=== PATIENT | male | born 1955 | race Caucasian/White ===

== ENCOUNTER 2016-08-14 08:18 | Day surgery (SDC) | payer MEDICARE, MEDICAID ==
[~2016-08-14] VITALS: Ht 188 cm; Wt 107.3 kg
[2016-08-14] MEDS ORDERED: SODIUM CHLORIDE 0.9% FLUSH 5 ML FLUSH IV FLUSH SCH (09:00)
[2016-08-14] MEDS ORDERED: SODIUM CHLORIDE 0.9% FLUSH 5 ML FLUSH IV FLUSH PRN (09:00)
[2016-08-14] MEDS ORDERED: OXYC1CAP PO (09:26)
[2016-08-14] MEDS ORDERED: LYRI200C PO (09:26)
[2016-08-14] MEDS ORDERED: BACL10TA PO (09:26)
[2016-08-14] MEDS ORDERED: FURO20TA PO (09:26)
[2016-08-14] MEDS ORDERED: CLOP75TA PO (09:26)
[2016-08-14] MEDS ORDERED: COLA100C3 PO (09:26)
[2016-08-14] MEDS ORDERED: FENT50DI T-DERMAL (09:26)
[2016-08-14] MEDS ORDERED: BUPR150XL PO (09:26)
[2016-08-14] MEDS ORDERED: METO50TA PO (09:26)
[2016-08-14] MEDS ORDERED: DIGO0.25 PO (09:26)
[2016-08-14] MEDS ORDERED: FLOR250C PO (09:26)
[2016-08-14] MEDS ORDERED: SIMV20TA PO (09:26)
[2016-08-14] MEDS ORDERED: LEXA20TA PO (09:26)
[2016-08-14] MEDS ORDERED: TAMS0.4C4 PO (09:26)
[2016-08-14] MEDS ORDERED: LACT10SO PO (09:26)
[2016-08-14] MEDS ORDERED: LEVO25TA4 PO (09:26)
[2016-08-14] MEDS ORDERED: LORA-474 PO (09:26)
[2016-08-14 09:41] LABS: BICARBONATE 25.9 MEQ/L (21.0-32.0); POTASSIUM 5.2 MEQ/L (3.5-5.1)
[2016-08-14] MEDS ORDERED: SODIUM BICARBONATE 100 MEQ in D5W 1000 ML IV SCH (10:00)
[2016-08-14 10:27] LABS: AUTOMATED NEUTROPHIL # 4.4 TH/MM3 (1.8-7.7); BASOPHIL % 0.7 % (0.0-2.0); EOSINOPHIL # 0.1 TH/MM3 (0-0.4); EOSINOPHIL % 1.9 % (0.0-4.0); HEMATOCRIT 35.6 % (39.0-51.0); HEMO FLAGS DIFF FINAL; LYMPH % 14.7 % (9.0-44.0); LYMPHOCYTE # 0.8 TH/MM3 (1.0-4.8); MEAN CELL VOLUME 81.6 FL (80.0-100.0); MEAN CORPUSCULAR HEMOGLOBIN 27.5 PG (27.0-34.0); MEAN CORPUSCULAR HGB CONC 33.7 % (32.0-36.0); MONO % 6.6 % (0.0-8.0); NEUT % 76.1 % (16.0-70.0); PLATELET COUNT 109 TH/MM3 (150-450); RED BLOOD COUNT 4.37 MIL/MM3 (4.50-5.90); RED CELL DISTRIBUTION WIDTH 16.2 % (11.6-17.2); WHITE BLOOD COUNT 5.7 TH/MM3 (4.0-11.0)
[2016-08-14 10:41] LABS: APTT (PATIENT) 27.1 SEC (24.3-30.1); PROTHROMBIN TIME - PATIENT 11.1 SEC (9.8-11.6)
[2016-08-14] MEDS ORDERED: MIDAZOLAM HCL 2 MG/2 ML VIAL ONE (11:42)
[2016-08-14] MEDS ORDERED: HEPARIN-NS/PF INJ 500 ML ONE (11:42)
[2016-08-14] MEDS ORDERED: IOHEXOL 350 MG/ML 50 ML BTL (for Cath Lab) OTHER ONE (11:45)
[2016-08-14] MEDS ORDERED: IOHEXOL 350 MG/ML 100 ML BTL (for Cath Lab) OTHER ONE (11:45)
--- NOTE | 2016-08-14 13:17 | MA ---
cc: KALI HARRY DATE 08/14/[address] Kali Harry PREOPERATIVE DIAGNOSIS Critical limb ischemia with 450 foot claudication right lower extremity and a slow healing second toe ulcer. PROCEDURE The patient had an aortogram with nonselective right lower extremity arteriogram and selective left lower short arteriogram. IV FLUIDS One liter of normal saline and sodium bicarb ESTIMATED BLOOD LOSS Minimal SEDATION Monitored sedation with also 5 cc of 1% lidocaine left groin. PROCEDURE I used a duplex ultrasound access the left groin with a 21-gauge needle. I exchanged over a thin wire for a 4-Marshallese micropuncture catheter and exchanged for a 5-Marshallese sheath. I then advanced an Omni-flush catheter into the abdominal aorta. I shot an AP aortogram. I pulled my catheter out and shot pelvic oblique arteriograms. I then shot a non-selective right lower extremity arteriogram as the right iliac system was occluded. I then shot a selective sheathogram of the left lower extremity. My findings were that the abdominal aorta was widely patent. It appears at SMA and iliac arteries were patent although the true origins were not identified by a lateral film. It appears that the right and left renal arteries appeared to be widely patent and the left SUKHDEEP was patent as well. The aorta had some eccentric calcification that appeared to have minimal disease. The right common iliac artery had a flush occlusion and did not reconstitute until the distal right superficial femoral artery. It should be noted, the right profunda femoral artery was supplied by pelvic collaterals. So the right common and external iliac artery, as well as the right common and superficial femoral arteries were occluded on the right. There was reconstitution of the distal SFA. The right popliteal artery appeared to be patent. The patient had three-vessel runoff through the mid calf, although we would cannot see beyond this due to lack of opacification. In the left lower extremity, the left common iliac, internal and external iliac arteries appeared to be widely patent. The left common femoral, profunda, and superficial femoral arteries were patent. There appeared to be an AV fistula in the area of the left mid to distal SFA. The left popliteal artery with three-vessel runoff across the ankle appeared to be patent as well. So my findings and conclusion, the patient has occluded right common and external iliac arteries as well as a right common femoral and the right SFA. DO CLAY Bush /12:39 PM /1:00 PM
[2016-08-14 13:32] VITALS: BP 102/54; PULSE 68; RESP 18; O2SAT 100
[2016-08-14] MEDS ORDERED: HOLD GLUCOPHAGE, GLUCOPHAGE XR, AND AVANDAMET XX PRN (14:15)
[2016-08-14] MEDS ORDERED: cloNIDine HCL 0.1 MG TAB PO PRN (14:15)
[2016-08-14] MEDS ORDERED: LABETALOL HCL 100 MG/20 ML VIAL IVP PRN (14:15)
[2016-08-14] MEDS ORDERED: LORazepam 2 MG/ML VIAL IVP PRN (14:15)
[2016-08-14] MEDS ORDERED: POTASSIUM CHLORIDE 20 MEQ CONTROLLED RELEASE TAB PO PRN (14:15)
[2016-08-14] MEDS ORDERED: SODIUM NITROPRUSSIDE 50 MG/250 ML D5W IV SCH ×2 (14:15)
[2016-08-14] MEDS ORDERED: ATROPINE SULFATE 1 MG/ML VIAL IV PUSH PRN (14:15)
[2016-08-14] MEDS ORDERED: oxyCODONE/ACETAMINOPHEN 5 MG/325 MG TAB PO PRN ×2 (14:15)
[2016-08-14] MEDS ORDERED: SODIUM CHLOR 0.9% 250 ML IV PRN (14:15)
[2016-08-14] MEDS ORDERED: LIDOCAINE HCL 1% 50 ML VIAL INFIL PRN (14:15)
[2016-08-14] MEDS ORDERED: SODIUM CHLORIDE 5 ML FLUSH PRN IVF (14:15)
[2016-08-14] MEDS ORDERED: ONDANSETRON HCL 4 MG/2 ML VIAL IV PRN (14:15)
[2016-08-14] MEDS ORDERED: ENALAPRILAT 1.25 MG/ML VIAL IV PRN (14:15)
[2016-08-14] MEDS ORDERED: METOCLOPRAMIDE HCL 10 MG/2 ML VIAL IVS PRN (14:15)
[2016-08-14] MEDS ORDERED: SODIUM CHLORIDE 0.9% 1000 ML @ 75 ML/HR IV SCH (14:15)
[2016-08-14] MEDS ORDERED: SODIUM CHLORIDE 5 ML FLUSH BID IVF SCH (21:00)
[2016-08-15] MEDS ORDERED: ASPIRIN EC 81 MG TABEC PO SCH (09:00)
== END 2016-08-14 17:15 | disposition home or self-care (01) ==
LOC: HDIC 08:18 → HDOC 08:18
PROVIDERS: ATTEND Surgery
DX: I70.211 Atherosclerosis of native arteries of extremities with intermittent claudication, right leg (principal); I10 Essential (primary) hypertension; Z79.01 Long term (current) use of anticoagulants
CPT/HCPCS: 36246; 75625; 75716; 80048; 85025; 85610; 85730; C1769; C1893; J1644; J2250; J3010; J7070; Q9967

== ENCOUNTER → 2016-09-16 | Outpatient (CLI) | payer MEDICARE, MEDICAID ==
[~2016-09-16] MED LIST: BACL10TA PO; BUPR150XL PO; CLOP75TA PO; COLA100C3 PO; DIGO0.25 PO; FENT50DI T-DERMAL; FLOR250C PO; FURO20TA PO; IOHEXOL 350 MG/ML 10 ML VIAL (for RAD DIAG) IV ONE; LACT10SO PO; LEVO25TA4 PO; LEXA20TA PO; LORA-474 PO; LYRI200C PO; METO50TA PO; OXYC1CAP PO; SIMV20TA PO; TAMS0.4C4 PO
--- NOTE | 2016-09-17 08:30 | RADRPT ---
EXAM DATE/TIME: 09/16/2016 16:32 [facility] COMPARISON: No previous studies available for comparison. INDICATIONS : Bilateral feet swelling and pain; evaluate for occlusion. IV CONTRAST: 100 cc Omnipaque 350 (iohexol) IV RADIATION DOSE: 5.07 CTDIvol (mGy) MEDICAL HISTORY : Hypertension. Renal calculi. SURGICAL HISTORY : Appendectomy. ENCOUNTER: Initial ACUITY: 1 day PAIN SCALE: 6/10 LOCATION: Bilateral Lower extremity. TECHNIQUE: Volumetric scanning was performed using a multi-row detector CT scanner. The data was post processed with a variety of visualization algorithms including full volume maximum intensity projection, multi -planar sliding thin slab reformation, curved planar reformation, and surface rendering techniques. Using automated exposure control and adjustment of the mA and/or kV according to patient size, radiat ion dose was kept as low as reasonably achievable to obtain optimal diagnostic quality images. FINDINGS: Abdominal aorta: The celiac origin is widely patent. There is mild stenosis in the origin of the SMA. There are single renal arteries bilaterally. The renal arteries are patent. The infrarenal aorta is small in caliber measuring only 1 cm in size. It is widely patent throughout its course. Pelvis: There is been prior stenting of the right common iliac. The common iliac stent is occluded throughout its course. The external iliac remains occluded down to its distal segment. There is reconstitution of the right common femoral. The left common iliac is diseased with an area of moderate grade stenosi s at the origin of the external iliac. The hypogastric is patent. The external iliac is diseased thro ughout its course with scattered areas of mild to moderate stenosis. Right leg: There is reconstitution of the common femoral. The profunda femoral is patent. The superficial femora l is occluded throughout most of its course. There is reconstitution below the adductor hiatus. Dista lly, the popliteal is small but adequate in caliber. All 3 trifurcation vessels are patent Left leg: The left common femoral is adequate in caliber. The profunda femoral is patent. The superficial femor al is heavily diseased with scattered areas of moderate high grade stenosis throughout its course. It is patent. The popliteal returns to normal caliber. Distally, all 3 trifurcation vessels are patent down into the foot. CT source data: There are atelectatic changes in the left lung base. There is mild splenomegaly. The liver appears mi ldly enlarged as well. The adrenal glands and kidneys are intact. There is no retroperitoneal adenopa thy. No free air or free fluid is seen. CONCLUSION: 1. Complete occlusion of the patient's right common iliac and external iliac circulation with reconst itution at the level of the right common femoral. There has been previous stenting of the right commo n iliac. 2. Patchy disease throughout the course of the distal left common iliac and external iliac circulatio n with several areas of moderate stenosis but no definite high-grade lesions. 3. 4. Right le. Complete occlusion of the superficial femoral with reconstitution of the popliteal and patent trif urcation vessels distally. 6. Left leg: Patchy disease throughout the course of the superficial femoral with scattered areas of moderate and high grade stenosis. The popliteal returns to a normal caliber. Distally, the trifurcati on vessels are patent. Remington Rodriguez MD on September 17, 2016 at 8:18 Board Certified Radiologist. This report was verified electronically.
--- NOTE | 2016-09-17 15:53 | RADRPT ---
EXAM DATE/TIME: 09/16/2016 16:08 [facility] COMPARISON: No previous studies available for comparison. INDICATIONS : Patient in need of IV access for CT scan. MEDICAL HISTORY : HTN SURGICAL HISTORY : None ENCOUNTER: Initial ACUITY: 1 day PAIN SCORE: 0/10 ACCESS: Right basilic vein DEVICE(S): 1.) 3/4 Togolese Dilator PROCEDURE : 1. Ultrasound guided venous access. The risks, benefits and alternatives to the procedure were explained and verbal and written consent w as obtained. The site was prepped in sterile fashion. Full sterile technique was used, including ca p, mask, sterile gloves and gown and a large sterile sheet. Hand hygiene and 2% chlorhexidine and/or betadine/alcohol prep was utilized per protocol for cutaneous antisepsis. The skin and subcutaneous tissues were infiltrated with local anesthetic solution. With ultrasound guidance the prescribed vein was punctured for venous access. A 4 Togolese dilator was placed and was flushed and locked with heparin. The patient tolerated procedure well and there were n o complications. CONCLUSION: Uncomplicated ultrasound guided venous access. Remington Rodriguez MD on September 17, 2016 at 15:51 Board Certified Radiologist. This report was verified electronically.
== END ==
LOC: HRAD 13:53
PROVIDERS: ATTEND Thoracic Surgery (Cardiothoracic Vascular Surgery)
DX: I73.9 Peripheral vascular disease, unspecified (principal)
CPT/HCPCS: 36410; 75635; 76937; Q9967

== ENCOUNTER 2017-01-05 08:00 | Inpatient (IN) | payer MEDICARE, MEDICAID ==
[~2017-01-05] VITALS: Ht 188 cm; Wt 112.0 kg
[~2017-01-05 08:00] MED LIST changes: -CLOP75TA PO; -COLA100C3 PO; -IOHEXOL 350 MG/ML 10 ML VIAL (for RAD DIAG) IV ONE; -LEVO25TA4 PO; -OXYC1CAP PO
[2017-01-12] MEDS ORDERED: IPRASOL INH (12:02)
[2017-01-12] MEDS ORDERED: CILO100T PO (12:02)
[2017-01-12] MEDS ORDERED: NOVOINJ3 SQ (12:02)
[2017-01-12] MEDS ORDERED: PLAV75TA29 PO (12:02)
[2017-01-12] MEDS ORDERED: THERM PO (12:02)
[2017-01-12] MEDS ORDERED: COLA100C PO (12:02)
[2017-01-12] MEDS ORDERED: GUAI600T34 PO (12:02)
[2017-01-12] MEDS ORDERED: TEARSOL EACH EYE (12:02)
[2017-01-12] MEDS ORDERED: STRETAB11 PO (12:02)
[2017-01-12] MEDS ORDERED: LEVO50TA4 PO (12:02)
[2017-01-12] MEDS ORDERED: PERC10TA27 PO (12:02)
[2017-01-12] MEDS ORDERED: TYLE325T PO (12:02)
[2017-01-12] MEDS ORDERED: BACT800T5 PO (12:02)
[2017-01-12] MEDS ORDERED: ZOFR4TAB PO (12:02)
[2017-01-12] MEDS ORDERED: LANTUS2P SQ (12:02)
[2017-01-12] MEDS ORDERED: MELA3TAB PO (12:02)
[2017-01-16] VITALS (7 sets, daily range): BP systolic 117–159; BP diastolic 55–74; PULSE 68–78; RESP 16–20; TEMP 97.9–98.5; O2SAT 94–99
[2017-01-16] MEDS ORDERED: LACTATED RINGER'S 1000 ML IV PRN (06:00)
[2017-01-16] MEDS ORDERED: CHLORHEXIDINE GLUCONATE 2 % 1 PACK (2 CLOTHS) TOPICAL PRN (06:00)
[2017-01-16] MEDS ORDERED: METOPROLOL TARTRATE 25 MG TAB PO PRN (06:00)
[2017-01-16] MEDS ORDERED: INSULIN HUMAN REGULAR 1,000 UNITS/10 ML VIAL SQ PRN (06:00)
[2017-01-16] MEDS ORDERED: SODIUM CHLORID 0.9% 500 ML IV PRN (06:00)
[2017-01-16] MEDS ORDERED: POVIDONE IODINE 5% (ANTISEPSIS KIT) 4 APPLICATIONS EACH NARE PRN (06:00)
[2017-01-16] MEDS ORDERED: BACT800T5 PO (06:57)
[2017-01-16] MEDS ORDERED: CIPR250T52 PO (06:57)
[2017-01-16 07:00] LABS: BACTERIA, URINE OCC /hpf; BLOOD, URINE TRACE (NEG); COMMENT (UR) CULTURE INDICATED; CULTURE IF INDICATED CULTURE INDICATED; GLUCOSE,URINE NEG (NEG); KETONE, URINE NEG (NEG); NITRITE,URINE NEG (NEG); URINE COLOR YELLOW (YELLW/STRAW)
[2017-01-16] MEDS ORDERED: fentaNYL CITRATE 250 MCG/5 ML AMP ONE (07:52)
[2017-01-16] MEDS ORDERED: MIDAZOLAM HCL 2 MG/2 ML VIAL ONE (07:52)
[2017-01-16] MEDS ORDERED: FAMOTIDINE 20 MG/2 ML VIAL ONE (07:52)
[2017-01-16] MEDS ORDERED: VANCOMYCIN HCL 1000 MG VIAL ONE (07:57)
[2017-01-16] MEDS ORDERED: SODIUM CHLOR 0.9% 250 ML INJ 250 ML ONE (07:58)
[2017-01-16] MEDS ORDERED: THROMBIN (TOPICAL) 20,000 UNIT SPRAY KIT ONE (08:22)
[2017-01-16] MEDS ORDERED: GELFOAM SIZE 100 ONE (08:22)
[2017-01-16] MEDS ORDERED: HEPARIN SODIUM - IV 10,000 UNITS/10 ML VIAL ONE ×2 (08:22→10:42)
[2017-01-16] MEDS ORDERED: PROTAMINE SULFATE 50 MG/5 ML VIAL ONE (08:23)
[2017-01-16] MEDS ORDERED: IOHEXOL 300 MG/ML 100 ML BTL (for Rad CT) OTHER ONE (09:22)
[2017-01-16] MEDS ORDERED: PHENYLEPH/NS 1000 MCG/10 ML SYR IV ONE (12:45)
[2017-01-16] MEDS ORDERED: PROPOFOL 200 MG/20 ML AMP IV ONE (12:45)
[2017-01-16] MEDS ORDERED: ONDANSETRON HCL 4 MG/2 ML VIAL IV PUSH ONE (12:45)
[2017-01-16] MEDS ORDERED: NEOSTIGMINE 3 MG/3 ML SYR IV ONE (12:45)
[2017-01-16] MEDS ORDERED: IODIXANOL 320 MG/ML 50 ML VIAL (for Cath Lab) ONE (12:58)
--- NOTE | 2017-01-16 14:45 | HHI.PR ---
Immediate Post Op Note Procedure Date: Jan 16, 2017 Pre Op Diagnosis: (1) Toe osteomyelitis, right Post Op Diagnosis: (1) Toe osteomyelitis, right Surgeon: Kali Otto Online Editor(s): Gumaro Chappell Procedure: fem-fem bypass with ringed 8 mm PTFE Selective angiogram of right lower extremity Right fem-above knee bypass with 6mm PTFE RIght 2nd toe amputation. Findings: Patent bypass Additional Information: NA Complications: None Specimen(s) removed: Right 2nd toe Estimated blood loss: 600cc Anesthesia: General Drains: None Fluids: 3500 cc IVF (3500), PRBC (2units) Tourniquet time (min at mmHg) NA Patient to: PACU Patient Condition: Good Implant/Devices: Other Date/Time of Procedure: Other Kali Otto DO Jan 16, 2017 14:45
[2017-01-16] MEDS ORDERED: RESP: ALBUTEROL 2.5 MG/3 ML NEB (PRN) INH (15:30)
[2017-01-16] MEDS ORDERED: MAGNESIUM HYDROXIDE SUSP 30 ML CUP PO PRN ×2 (15:30→15:45)
[2017-01-16] MEDS ORDERED: SENNOSIDES 8.6 MG TAB PO PRN (15:30)
[2017-01-16] MEDS ORDERED: BISACODYL 10 MG SUPP RECTAL PRN (15:30)
[2017-01-16] MEDS ORDERED: ARTIFICIAL TEAR OPTH EACH EYE PRN (15:30)
[2017-01-16] MEDS ORDERED: MISCELLANEOUS NURSING INFORMATION XX SCH (15:30)
[2017-01-16] MEDS ORDERED: ONDANSETRON HCL 4 MG/2 ML VIAL IV PRN (15:30)
[2017-01-16] MEDS ORDERED: LACTULOSE SYRUP 20 GM/30 ML CUP PO PRN (15:30)
[2017-01-16] MEDS ORDERED: SODIUM CHLORIDE 0.9% FLUSH 10 ML FLUSH IV FLUSH PRN (15:30)
[2017-01-16] MEDS ORDERED: CHLORHEXIDINE GLUCONATE 2 % 1 PACK (2 CLOTHS) TOP PRN (15:30)
--- NOTE | 2017-01-16 15:43 | PD.CONS ---
[facility] Service Critical Care Medicine Consult Requested By Dr. Otto Reason for Consult Care management Primary Care Physician Deepak Encinas MD History of Present Illness 61-year-old male. Date of admission 01/16/2017. Date of consultation 01/16/2017. 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 In July/2016 patient had a runoff with Dr. yuan. This revealed an occluded right common and external iliac with occlusion the right common femoral and right superficial femoral artery. Left side is essentially patent with possible AV fistulas in the left mid thigh region. Today patient had a femorofemoral bypass the ring 8 mm PTFE, selective angiography of the right lower extremity with of right [id number] bypass with a 6 mm PTFE right second toe amputation. Estimated blood loss 700 cc. Received 4000 cc of crystalloid and 2 units PRBCs. Urine output was 1100 cc. Review of Systems Constitutional: DENIES: Fatigue, Fever, Weight gain, Weight loss Endocrine: DENIES: Polydipsia, Polyuria Eyes: DENIES: Blurred vision, Double Vision Ears, nose, mouth, throat: DENIES: Tinnitus, Sinus Pain Respiratory: DENIES: Apneas, Shortness of breath Cardiovascular: DENIES: Chest pain Gastrointestinal: COMPLAINS OF: Constipation, DENIES: Abdominal pain, Diarrhea , Nausea, Vomiting Genitourinary: COMPLAINS OF: Urinary frequency Musculoskeletal: COMPLAINS OF: Joint pain Integumentary: DENIES: Abnormal pigmentation Hematologic/lymphatic: COMPLAINS OF: Bruising Immunologic/allergic: DENIES: Eczema Neurologic: DENIES: Abnormal gait, Headache Psychiatric: COMPLAINS OF: Confusion Past Family Social History Allergies: Coded Allergies: Ambien (Verified Allergy, Severe, 01/12/17) behavioral Macrobid (Verified Allergy, Severe, Tachycardia, 01/12/17) increased HR and fever Past Medical History Depression/anxiety History of CVA in 2003 with right-sided weakness Atrial fibrillation/chronic Asthma/COPD Constipation Gastroesophageal reflux disease BPH Diabetes mellitus with neuropathy Chronic kidney disease stage III Osteoarthritis Hypertension Dyslipidemia Peripheral arterial disease chronic low back pain Prior tobaccoism Urinary incontinence Past Surgical History Cataract extraction S4 Appendectomy Upper dentures Exploratory laparotomy with removal of "blood clots". L1 compression fracture TURP Vascular catheterization for peripheral arterial disease Reported Medications Ondansetron 4 mg by mouth every 6 hours when necessary Tamsulosin 0.4 mg by mouth daily Lactulose 30 cc as needed Acetaminophen 650 mg every 6 hours when necessary Pregabalin 200 mg by mouth twice a day Bupropion 150 mg by mouth daily Escitalopram 20 mg by mouth daily Ipratropium/albuterol 0.5/2.5 inhalations 4 times a day Lorazepam 1 mg twice a day when necessary Metoprolol 50 mg by mouth twice a day Digoxin 0.25 mg by mouth daily Artificial tears as needed Guaifenesin 600 milligrams by mouth twice a day as needed Baclofen 10 mg at night Docusate sodium 100 mg by mouth twice a day Saccharomyces Boulardii 250 mg by mouth twice a day Insulin glargine 32 units subcutaneous at night Furosemide 20 mg by mouth daily Melatonin 2 mg at night fentanyl patch 50 mics grams every 72 hours Cilostazol 100 mg by mouth twice a day Levothyroxine 50 mg by mouth daily Clopidogrel 75 mill grams by mouth daily Oxycodone/acetaminophen 10/25 one tablet every 6 hours when necessary pain Active Ordered Medications Reviewed in EMR Family History "I don't want to talk about my family". Denied diabetes or heart disease however. Social History [id number] smoker. Quit 2 years ago. Says quit alcohol "years ago. Denies any IV drug or illicit drug use Physical Exam Vital Signs Vital Signs Date Time Temp Pulse Resp B/P Pulse Ox O2 Delivery O2 Flow Rate FiO2 01/16/17 06:59 98.3 75 18 117/55 96 Physical Exam GENERAL: 61-year-old male, critically ill currently resting in bed in no acute distress SKIN: Cool and dry. No rash or ecchymoses bilateral anterior tibial region. Bandage placed over left medial clean dry and intact HEAD: Atraumatic. Normocephalic. EYES: Pupils equal and round about 2 mm bilaterally and reactive. No scleral icterus. No injection or drainage. ENT: No nasal bleeding or discharge. Mucous membranes pink and moist. NECK: Trachea midline. No JVD. CARDIOVASCULAR: Regular rate and rhythm. S1, S2. No S4. 2/6 murmur at the apex RESPIRATORY: Diminished breath sounds throughout. Faint end expiratory wheeze appreciated. GASTROINTESTINAL: Abdomen soft, non-tender, slightly protuberant. Hypoactive bowel sounds appreciated MUSCULOSKELETAL: Extremities status post right second toe amputation. Wound VAC in place anterior dorsum of foot. Wrapped in Kerlix. Dopplerable DP. Non- dopplerable PT right side. Dopplerable PT/DP on left. NEUROLOGICAL: Awake and alert. No obvious cranial nerve deficits. Motor grossly within normal limits. Five out of 5 muscle strength in the arms and legs. Diminished sensation light touch and pinprick bilateral lower extremities. Normal Laboratory Laboratory Tests Test 01/16/17 01/16/17 01/16/17 01/16/17 06:34 06:35 08:30 14:05 Urine Color YELLOW Urine Turbidity HAZY Urine pH 6.0 Urine Specific [place] 1.014 Urine Protein TRACE Urine Glucose (UA) NEG Urine Ketones NEG Urine Occult Blood TRACE Urine Nitrite NEG Urine Bilirubin NEG Urine Urobilinogen LESS THAN 2.0 Urine Leukocyte Esterase LARGE Urine RBC 5 Urine WBC Urine WBC Clumps FEW Urine Amorphous Sediment RARE Urine Bacteria OCC Microscopic Urinalysis Comment CULTURE INDICATED Blood Type A NEGATIVE A NEGATIVE Antibody Screen NEGATIVE Blood Bank Comment Crossmatch Leukocyte-Reduced Leukocyte-Reduced Red Blood Red Blood Cells Cells Date/Time Procedure Status Source Growth 01/16/17 06:34 Urine Culture Received Urine Clean Catch Pending Assessment and Plan Assessment and Plan Neuro/Psych: History CVA 2003 with right-sided weakness documented Depression/anxiety Insomnia Diabetic peripheral neuropathy Chronic benzodiazepine use Chronic narcotic use Currently on oxycodone/acetaminophen 5-10 mg by mouth every 4 hours for Pain Morphine sulfate 4 miligrams IV every 4 hours when necessary breakthrough pain Patient is on Pregabalin 200 mg by mouth twice a day for neuropathy Patient is on bupropion 150 mg by mouth daily for depression Patient is on Escilatopram 20 mg by mouth daily for depression Patient is on melatonin 2 mill grams at night for insomnia. Written for Ambien 5 mg for night as needed for insomnia He is on baclofen 10 mg a night for muscle spasms currently on hold Patient is on lorazepam 1 mg by mouth twice a day for anxiety as needed at longterm here currently on hold Patient is on oxycodone/acetaminophen 10/325 one tab every 6 hours for pain at [facility]. Patient is on fentanyl patch 50 mg every 72 hours at longterm are currently on hold CV: Postop day #0 femorofemoral bypass with ringed 8 mm PTFE, selective angiogram the right lower extremity with right femoral above-knee bypass with 6 mm PTFE and right second amputation secondary ostium myelitis right toe. History of atrial fibrillation Hypertension Dyslipidemia PAD Written for aspirin 325 mg by mouth daily On 0.9 NS @ 100cc/hr x 24 hr per vasc surg Wound vac management per Vasc surg Patient is on metoprolol 50 mill grams by mouth daily at home for hypertension . Resume when clinically indicated. Goal systolic blood pressure 100 - 140 for vascular surgery Patient is on digoxin 0.25 mg by mouth daily for A. fib. Continue and Recheck digoxin level in AM. Patient is on furosemide 20 mg by mouth daily. Currently on hold . Resume when clinically indicated Patient is on simvastatin 20 mg by mouth daily for dyslipidemia. Currently on hold. Resume when clinically indicated Currently on Cilostazol 100 milligrams by mouth twice a day currently on hold Currently on clopidogrel 75 mg by mouth daily. Currently on hold Resp: COPD/asthma Prior tobacco abuse Nasal cannula to maintain saturations greater than or equal to 92% Incentive spirometry while awake Ipratropium/albuterol nebulizers every 6 hours/home medication Follow-up chest x-ray in a.m. GI: Gastroesophageal reflux disease Chronic constipation Advance diet per vascular surgery Pantoprazole 40 mg by mouth at night for GI prophylaxis Docusate calcium 240 mg by mouth daily for bowel regimen per vascular surgery On ondansetron 4 mg every 6 hours when necessary nausea to be continued On docusate sodium 100 mg by mouth twice a day for constipation at longterm : BPH history of TURP Urinary incontinence Maintain Ovalle catheter today. Resume when clinically indicated On tamsulosin 0.4 mg by mouth daily for BPH Endo: Diabetes mellitus type 2 insulin requiring Hypothyroidism Patient is on insulin glargine 32 units at night for diabetes Currently on sliding scale insulin Novulin R with Accu-Cheks every 6 hours/high regimen Patient is on 50 mics grams daily levothyroxine. Check TSH in a.m. Renal: Chronic kidney disease stage III Follow-up CMP in a.m. Monitor urine output Accurate I's and O's Heme: Anemia of chronic disease Goal maintain hematocrit greater than 27. Transfuse 2 units PRBCs in OR. ID: History recurrent UTI Currently on Levaquin 250 mg by mouth every 48 hours Currently on vancomycin 1250 mill grams IV every 12 hours per status post surgery Patient is on Saccharomyces boulardii 250 mg by mouth twice a day Previously on multiple antibiotics for urinary tract infection UA pending FEN: Replace electrolytes as clinically indicated MSK: Chronic low back pain History of L1 compression fracture Osteoarthritis See neuro. PT evaluate and treat Access - Utilize peripheral IV. Central line if indicated Prophylaxis - GI -pantoprazole - DVT - pharmacological prophylaxis when okay with vascular surgery Level III consult Code Status Full code Discussed Condition With Dr. Otto. Patient. Care plan discussed all questions answered. Tae Hopkins MD Jan 16, 2017 15:43
[2017-01-16] MEDS ORDERED: GLUCAGON 1 MG/ML VIAL OTHER PRN (15:45)
[2017-01-16] MEDS ORDERED: Post-op Orders (for Pharmacy) MISC OTHER ONE (15:45)
[2017-01-16] MEDS ORDERED: VANCOMYCIN INJ 1,250 MG in SODIUM CHLOR 0.9% 250 ML INJ 250 ML IV SCH (15:45)
[2017-01-16] MEDS ORDERED: DEXTROSE 50% IN WATER 50 ML VIAL(D50) IV PUSH PRN (15:45)
[2017-01-16] MEDS ORDERED: oxyCODONE/ACETAMINOPHEN 10 MG/325 MG TAB PO PRN (15:45)
[2017-01-16] MEDS ORDERED: ZOLPIDEM TARTRATE 5 MG TAB PO PRN (15:45)
[2017-01-16] MEDS ORDERED: ONDANSETRON HCL 4 MG/2 ML VIAL IV PUSH PRN (15:45)
[2017-01-16] MEDS ORDERED: MORPHINE SULFATE 4 MG/ML INJ IV PUSH PRN (15:45)
[2017-01-16] MEDS ORDERED: ACETAMINOPHEN 325 MG TAB PO PRN (15:45)
[2017-01-16] MEDS ORDERED: oxyCODONE/ACETAMINOPHEN 5 MG/325 MG TAB PO PRN (15:45)
[2017-01-16] MEDS: LEVOFLOXACIN 250 MG PREMIX INJ 50 ML IV SCH (16:33)
[2017-01-16] MEDS ORDERED: HYDROmorphone HCL PF 1 MG/ML VIAL IV PRN (17:00)
[2017-01-16] MEDS ORDERED: diphenhydrAMINE HCL 50 MG/ML VIAL IV PRN (17:30)
[2017-01-16] MEDS ORDERED: NALOXONE HCL 0.4 MG/ML AMP IV PRN (17:30)
[2017-01-16] MEDS: ARTIFICIAL TEARS OPTH SOLN 15 ML BTL EACH EYE SCH (18:00)
[2017-01-16] MEDS: INSULIN NovoLIN REGULAR SUPPLEMENTAL SCALE SQ SCH ×2 (18:00→23:57)
[2017-01-16] MEDS: VANCOMYCIN INJ 1,250 MG in SODIUM CHLOR 0.9% 250 ML INJ 250 ML IV SCH (18:30)
[2017-01-16] MEDS: HYDROmorphone HCL PCA 6 MG/30 ML IV SCH ×3 (18:34→23:49)
[2017-01-16] MEDS: SODIUM CHLOR 0.9% 1000 ML INJ 1,000 ML IV SCH (18:47)
[2017-01-16 19:55] LABS: HEMATOCRIT 31.7 % (39.0-51.0); MEAN CELL VOLUME 79.4 FL (80.0-100.0); MEAN CORPUSCULAR HEMOGLOBIN 25.9 PG (27.0-34.0); MEAN CORPUSCULAR HGB CONC 32.6 % (32.0-36.0); PLATELET COUNT 136 TH/MM3 (150-450); RED CELL DISTRIBUTION WIDTH 15.5 % (11.6-17.2); REVIEW FLAG FINAL
[2017-01-16 20:18] LABS: BICARBONATE 24.6 MEQ/L (21.0-32.0); POTASSIUM 4.9 MEQ/L (3.5-5.1)
[2017-01-16] MEDS: DOCUSATE CALCIUM 240 MG CAP PO SCH (20:28)
[2017-01-16] MEDS: SODIUM CHLORIDE 0.9% FLUSH 10 ML FLUSH IV FLUSH SCH (20:28)
[2017-01-16] MEDS: PREGABALIN 100 MG CAP PO SCH (20:29)
[2017-01-16] MEDS: PANTOPRAZOLE SOD 40 MG DELAYED RELEASE TAB PO SCH (20:29)
[2017-01-16] MEDS: TAMSULOSIN HCL 0.4 MG CAP PO SCH (20:29)
[2017-01-16] MEDS ORDERED: [UNRECOGNIZED DRUG - OTHER] PO SCH (21:00)
[2017-01-16] MEDS ORDERED: [UNRECOGNIZED DRUG - OTHER] PO SCH (21:00)
[2017-01-16] MEDS ORDERED: NON-FORMULARY DRUG (Saccharomyces Boulardii (Florastor) 250 MG) PO SCH (21:00)
[2017-01-16] MEDS ORDERED: DOCUSATE SODIUM 50 MG/SENNA 8.6 MG TAB PO SCH (21:00)
[2017-01-16] MEDS: RESP: ALBUTEROL 2.5 MG/IPRATROPIUM 0.5 MG NEB (SCH) INH (21:55)
[2017-01-16] MEDS: PCA - TOTAL MG DILAUDID DELIVERED PER SHIFT OTHER SCH (22:00)
[2017-01-17] VITALS (13 sets, daily range): BP systolic 108–130; BP diastolic 56–70; PULSE 69–84; RESP 15–18; TEMP 98–98.6; O2SAT 96–99
[2017-01-17] MEDS: RESP: ALBUTEROL 2.5 MG/IPRATROPIUM 0.5 MG NEB (SCH) INH ×7 (00:41→20:25)
[2017-01-17] MEDS: HYDROmorphone HCL PCA 6 MG/30 ML IV SCH ×5 (03:41→23:57)
[2017-01-17] MEDS: SODIUM CHLOR 0.9% 1000 ML INJ 1,000 ML IV SCH ×2 (03:41→11:38)
[2017-01-17] MEDS: CHLORHEXIDINE GLUCONATE 2 % 1 PACK (2 CLOTHS) TOP SCH (04:00)
[2017-01-17] MEDS: fentaNYL 50 MCG/HR PATCH T-DERMAL SCH (04:46)
[2017-01-17] MEDS: LEVOTHYROXINE SODIUM 50 MCG TAB PO SCH ×2 (05:42→09:25)
[2017-01-17] MEDS: PCA - TOTAL MG DILAUDID DELIVERED PER SHIFT OTHER SCH ×3 (05:54→20:50)
[2017-01-17] MEDS: INSULIN NovoLIN REGULAR SUPPLEMENTAL SCALE SQ SCH ×4 (06:00→23:38)
[2017-01-17 06:07] LABS: APTT (PATIENT) 29.4 SEC (24.3-30.1); INTERNATIONAL NORMALIZED RATIO 1.1 RATIO; PROTHROMBIN TIME - PATIENT 11.7 SEC (9.8-11.6)
--- NOTE | 2017-01-17 06:14 | RADRPT ---
EXAM DATE/TIME: 01/17/2017 04:02 [place] COMPARISON: CHEST PA & LAT, January 12, 2017, 13:04. INDICATIONS : Evaluate lungs, COPD MEDICAL HISTORY : None. SURGICAL HISTORY : Femoral bypass ENCOUNTER: Subsequent ACUITY: 2 days PAIN SCORE: 7/10 LOCATION: Bilateral chest FINDINGS: There is consolidation and effusion at the left lung base which appears slightly worse than on prior. Cardiomediastinal contours are grossly stable. CONCLUSION: Worsening left base infiltrate and effusion iNrmal Camacho MD on January 17, 2017 at 6:12 Board Certified Radiologist. This report was verified electronically.
[2017-01-17 06:15] LABS: ANION GAP 7 MEQ/L (5-15); BICARBONATE 24.9 MEQ/L (21.0-32.0); BLOOD UREA NITROGEN 25 MG/DL (7-18); CHLORIDE 106 MEQ/L (98-107); GLOMERULAR FILTRATION RATE 49 ML/MIN (>89); MAGNESIUM 2.4 MG/DL (1.5-2.5); POTASSIUM 4.4 MEQ/L (3.5-5.1); SODIUM (NA) 138 MEQ/L (136-145)
[2017-01-17 06:16] LABS: ALT (GPT) 15 U/L (12-78); AST (GOT) 11 U/L (15-37)
[2017-01-17 06:24] LABS: AUTOMATED NEUTROPHIL # 5.5 TH/MM3 (1.8-7.7); BASOPHIL % 0.6 % (0.0-2.0); EOSINOPHIL % 0.1 % (0.0-4.0); HEMATOCRIT 28.5 % (39.0-51.0); HEMO FLAGS DIFF FINAL; LYMPHOCYTE # 0.5 TH/MM3 (1.0-4.8); MEAN CORPUSCULAR HEMOGLOBIN 26.4 PG (27.0-34.0); MEAN CORPUSCULAR HGB CONC 33.5 % (32.0-36.0); NEUT % 84.3 % (16.0-70.0); PLATELET COUNT 127 TH/MM3 (150-450); RED BLOOD COUNT 3.61 MIL/MM3 (4.50-5.90); RED CELL DISTRIBUTION WIDTH 15.6 % (11.6-17.2); WHITE BLOOD COUNT 6.5 TH/MM3 (4.0-11.0)
[2017-01-17 06:30] LABS: ALKALINE PHOSPHATASE 63 U/L (45-117); DIGOXIN 0.9 NG/ML (0.8-2.0); TOTAL BILIRUBIN ADULT 0.4 MG/DL (0.2-1.0)
--- NOTE | 2017-01-17 07:20 | HHI.CCPN ---
Subjective Remarks/Hospital Course Hospital Course: 61-year-old male. Date of admission 01/16/2017. Date of consultation 01/16/2017. 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 In July/2016 patient had a runoff with Dr. yuan. This revealed an occluded right common and external iliac with occlusion the right common femoral and right superficial femoral artery. Left side is essentially patent with possible AV fistulas in the left mid thigh region. Today patient had a femorofemoral bypass the ring 8 mm PTFE, selective angiography of the right lower extremity with of right [id number]-[id number]-wzmh bypass with a 6 mm PTFE right second toe amputation. Estimated blood loss 700 cc. Received 4000 cc of crystalloid and 2 units PRBCs. Urine output was 1100 cc. Subjective: 01/17: pain not adequately controlled, but patient on significant doses of chronic opiates at home, so unlikely that his acute pain will be controlled to the patient's satisfaction. patient states that his pain is a 7-8/10 at home from his chronic pain needs, and today he complains of 8/10. Cr slightly worse, but adequate uop overnight. denies other complaints. Objective Vital Signs Date Time Temp Pulse Resp B/P Pulse Ox O2 Delivery O2 Flow Rate FiO2 01/17/17 05:54 15 01/17/17 03:56 76 01/17/17 03:56 98.0 108/56 99 01/17/17 03:56 Nasal Cannula 2.00 Intake and Output 01/16/17 01/16/17 01/17/17 08:00 16:00 00:00 Intake Total 830 ml Output Total 745 ml Balance 85 ml Result Diagram: 01/17/17 0534 01/17/17 0534 Objective Remarks GENERAL: 61-year-old male, currently resting in bed in no acute distress SKIN: Cool and dry. Bandage placed over left medial clean dry and intact HEAD: Atraumatic. Normocephalic. EYES: Pupils equal and round about 2 mm bilaterally and reactive. No scleral icterus. No injection or drainage. ENT: No nasal bleeding or discharge. Mucous membranes pink and moist. NECK: Trachea midline. No JVD. CARDIOVASCULAR: Regular rate and rhythm. sinus by tele. RESPIRATORY: unlabored. equal chest rise. GASTROINTESTINAL: Abdomen soft, non-tender, slightly protuberant. MUSCULOSKELETAL: Extremities status post right second toe amputation. Wound VAC in place anterior dorsum of foot. Wrapped in Kerlix. Dopplerable DP. Non- dopplerable PT right side. Dopplerable PT/DP on left. NEUROLOGICAL: Awake and alert. No obvious cranial nerve deficits. A/P Assessment and Plan Assessment: 61yM with chronic pain history, CKD stage III and severe PAD now POD 1 s/p fem-fem bypass. Acute on chronic kidney disease likely secondary to surgical stress and only slightly worse than yesterday. will continue to monitor. Agree with fluids today, although would have low threshold to restart home lasix to prevent volume overload. will schedule tylenol, add back oxycodone to cover home opiate deficit but also add additional oxycodone and dilaudid to cover acute pain needs. discussed with patient that he is going to have pain due to his znfwh-jr-hleixem surgical pain, so will work with him to come up with non-pharmacologic pain strategies. OOB and mobilize today. could leave ICU. Neuro/Psych: History CVA 2003 with right-sided weakness documented Depression/anxiety Insomnia Diabetic peripheral neuropathy Chronic benzodiazepine use Chronic narcotic use Acute on chronic post-operative pain - persistent and uncontrolled. Pregabalin 200 mg by mouth twice a day for neuropathy bupropion 150 mg by mouth daily for depression Escilatopram 20 mg by mouth daily for depression restart melatonin 5mg qHS scheduled. restart baclofen 10 mg a night for muscle spasms currently on hold restart Lorazepam 1 mg by mouth twice a day for anxiety [facility] restart fentanyl patch 50 mg every 72 hours schedule tylenol 650mg po q6h add oxycodone 20mg po q4h prn add dilaudid 1mg iv q4h prn breakthrough pain continue dilaudid [employer]IAN, but change to 0.4mg q10min (was 0.3mg q6min) CV: Postop day #1 femorofemoral bypass with ringed 8 mm PTFE, selective angiogram the right lower extremity with right femoral above-knee bypass with 6 mm PTFE and right second amputation secondary ostium myelitis right toe. History of atrial fibrillation Hypertension Dyslipidemia PAD Written for aspirin 325 mg by mouth daily On 0.9 NS @ 100cc/hr x 24 hr Wound vac management per Vasc surg resume home lopressor. continue digoxin 0.25 mg by mouth daily for A. fib. dig level 01/17 0.9 continue to hold home lasix 20mg po daily. would have low threshold to restart, as early as this afternoon or tomorrow. continue simvastatin 20 mg by mouth daily for dyslipidemia. Currently on clopidogrel 75 mg by mouth daily. Currently on hold. will discuss with Dr. Otto about restarting. Resp: COPD/asthma Prior tobacco abuse Nasal cannula to maintain saturations greater than or equal to 92% Incentive spirometry while awake Ipratropium/albuterol nebulizers every 6 hours/home medication OOB to chair, PT consult. GI: Gastroesophageal reflux disease Chronic constipation Heart healthy diet as tolerated. Pantoprazole 40 mg by mouth at night for GI prophylaxis Docusate calcium 240 mg by mouth daily for bowel regimen per vascular surgery On ondansetron 4 mg every 6 hours when necessary nausea to be continued On docusate sodium 100 mg by mouth twice a day for constipation at [facility] : BPH history of TURP Urinary incontinence d/c lopez catheter today. On tamsulosin 0.4 mg by mouth daily for BPH Endo: Diabetes mellitus type 2 insulin requiring Hypothyroidism Patient is on insulin glargine 32 units at night for diabetes Currently on sliding scale insulin Novulin R with Accu-Cheks every 6 hours/high regimen Patient is on 50 mics grams daily levothyroxine. Renal: Chronic kidney disease stage III daily BMP, monitor Cr. Monitor urine output Accurate I's and O's Heme: Anemia of chronic disease Anemia secondary to acute blood loss Goal maintain hematocrit greater than 27. Transfuse 2 units PRBCs in OR. does not meet transfusion triggers at this time. daily CBC. ID: History recurrent UTI Currently on Levaquin 250 mg by mouth every 48 hours Currently on vancomycin 1250 mill grams IV every 12 hours per status post surgery Patient is on Saccharomyces boulardii 250 mg by mouth twice a day Previously on multiple antibiotics for urinary tract infection Urine culture pending. FEN: Replace electrolytes as clinically indicated MSK: Chronic low back pain History of L1 compression fracture Osteoarthritis See neuro. PT evaluate and treat Access - Utilize peripheral IV. Central line if indicated Prophylaxis - GI -pantoprazole - DVT - pharmacological prophylaxis when okay with vascular surgery Dispo: could leave ICU. will discuss with vascular. Ajay Andino MD Jan 17, 2017 07:19
[2017-01-17] MEDS: LORazepam 1 MG TAB PO PRN ×2 (07:30→20:49)
[2017-01-17] MEDS ORDERED: NON-FORMULARY DRUG (Simvastatin 20 MG) PO SCH (09:00)
[2017-01-17] MEDS ORDERED: buPROPion HCL 150 MG EXTENDED RELEASE TAB PO SCH (09:00)
[2017-01-17] MEDS: buPROPion HCL 150 MG SUSTAINED RELEASE TAB PO SCH (09:00)
[2017-01-17] MEDS: ASPIRIN EC 325 MG TABEC PO SCH (09:24)
[2017-01-17] MEDS: PREGABALIN 100 MG CAP PO SCH ×2 (09:24→20:45)
[2017-01-17] MEDS: ESCITALOPRAM OXALATE 20 MG TAB PO SCH (09:25)
[2017-01-17] MEDS: PRAVASTATIN SOD 40 MG TAB PO SCH (09:25)
[2017-01-17] MEDS: MULTIVITAMINS/MINERALS THERAPEUTIC TAB PO SCH (09:25)
[2017-01-17] MEDS: METOPROLOL TARTRATE 50 MG TAB PO SCH ×2 (09:26→20:46)
[2017-01-17] MEDS: DIGOXIN 0.25 MG TAB PO SCH (09:26)
[2017-01-17] MEDS: ARTIFICIAL TEARS OPTH SOLN 15 ML BTL EACH EYE SCH ×3 (09:27→17:05)
[2017-01-17] MEDS: SODIUM CHLORIDE 0.9% FLUSH 10 ML FLUSH IV FLUSH SCH ×2 (09:27→20:50)
--- NOTE | 2017-01-17 11:34 | PD.VS.PN ---
Subjective Procedure(s): fem-fem and right fem-pop bypass with right 2nd toe amputation. Objective Cardiac: dressings in bilateral groins and right leg intact. Right DP with strong signal and warm foot. Wound vac dressing intact. Laboratory Laboratory Tests Test 01/16/17 01/16/17 01/17/17 14:05 18:40 05:34 Crossmatch Leukocyte-Reduced Red Blood Cells Blood Bank Comment White Blood Count 8.0 6.5 Red Blood Count 4.00 3.61 Hemoglobin 10.3 9.6 Hematocrit 31.7 28.5 Mean Corpuscular Volume 79.4 79.0 Mean Corpuscular Hemoglobin 25.9 26.4 Mean Corpuscular Hemoglobin 32.6 33.5 Concent Red Cell Distribution Width 15.5 15.6 Platelet Count 136 127 Mean Platelet Volume 7.8 7.9 Sodium Level 138 138 Potassium Level 4.9 4.4 Chloride Level 106 106 Carbon Dioxide Level 24.6 24.9 Anion Gap 7 7 Blood Urea Nitrogen 26 25 Creatinine 1.33 1.45 Estimat Glomerular Filtration 54 49 Rate Random Glucose 142 122 Calcium Level 7.8 7.6 Neutrophils (%) (Auto) 84.3 Lymphocytes (%) (Auto) 8.0 Monocytes (%) (Auto) 7.0 Eosinophils (%) (Auto) 0.1 Basophils (%) (Auto) 0.6 Neutrophils # (Auto) 5.5 Lymphocytes # (Auto) 0.5 Monocytes # (Auto) 0.5 Eosinophils # (Auto) 0.0 Basophils # (Auto) 0.0 CBC Comment DIFF FINAL Differential Comment Prothrombin Time 11.7 Prothromb Time International 1.1 Ratio Activated Partial 29.4 Thromboplast Time Phosphorus Level 2.6 Magnesium Level 2.4 Total Bilirubin 0.4 Aspartate Amino Transf 11 (AST/SGOT) Alanine Aminotransferase 15 (ALT/SGPT) Alkaline Phosphatase 63 Total Protein 5.9 Albumin 2.5 Thyroid Stimulating Hormone 1.120 3rd Gen Digoxin Level 0.9 Date/Time Procedure Status Source Growth 01/16/17 06:34 Urine Culture Received Urine Clean Catch Pending Imaging Last 48 hours Impressions Chest X-Ray 01/17/17 0600 Signed Impressions: Service Date/Time: Thursday, January 17, 2017 04:02 - CONCLUSION: Worsening left base infiltrate and effusion Nirmal Camacho MD Assessment and Plan Assessment: (1) Toe osteomyelitis, right Status: Acute Plan 1. OOB to chair. May ambulate as tolerated. 2.Downgrade to CIC. 3.Advance diet. Kali Otto DO Jan 17, 2017 11:34
[2017-01-17] MEDS: ACETAMINOPHEN 325 MG TAB PO SCH ×3 (12:00→23:34)
[2017-01-17] MEDS: VANCOMYCIN INJ 1,250 MG in SODIUM CHLOR 0.9% 250 ML INJ 250 ML IV SCH (16:38)
[2017-01-17] MEDS: LEVOFLOXACIN 250 MG PREMIX INJ 50 ML IV SCH (16:38)
[2017-01-17] MEDS: TAMSULOSIN HCL 0.4 MG CAP PO SCH (20:45)
[2017-01-17] MEDS: DOCUSATE CALCIUM 240 MG CAP PO SCH (20:46)
[2017-01-17] MEDS: PANTOPRAZOLE SOD 40 MG DELAYED RELEASE TAB PO SCH (20:46)
[2017-01-17] MEDS ORDERED: [UNRECOGNIZED DRUG - OTHER] PO SCH (21:00)
[2017-01-17] MEDS: MELATONIN 5 MG TAB PO SCH (23:33)
[2017-01-17] MEDS: BACLOFEN 10 MG TAB PO PRN (23:33)
[2017-01-18] VITALS (28 sets, daily range): BP systolic 110–143; BP diastolic 58–67; PULSE 64–76; RESP 16–21; TEMP 97.9–98.6; O2SAT 91–99
[2017-01-18] MEDS: RESP: ALBUTEROL 2.5 MG/IPRATROPIUM 0.5 MG NEB (SCH) INH ×6 (00:04→21:03)
[2017-01-18] MEDS: CHLORHEXIDINE GLUCONATE 2 % 1 PACK (2 CLOTHS) TOP SCH ×2 (01:53→23:38)
[2017-01-18] MEDS: ACETAMINOPHEN 325 MG TAB PO SCH ×4 (05:33→23:38)
[2017-01-18] MEDS: PCA - TOTAL MG DILAUDID DELIVERED PER SHIFT OTHER SCH ×3 (06:00→22:00)
[2017-01-18] MEDS: INSULIN NovoLIN REGULAR SUPPLEMENTAL SCALE SQ SCH ×4 (06:00→23:38)
[2017-01-18] MEDS: LEVOTHYROXINE SODIUM 50 MCG TAB PO SCH (06:20)
[2017-01-18] MEDS: ASPIRIN EC 325 MG TABEC PO SCH (08:55)
[2017-01-18] MEDS: MULTIVITAMINS/MINERALS THERAPEUTIC TAB PO SCH (08:55)
[2017-01-18] MEDS: ESCITALOPRAM OXALATE 20 MG TAB PO SCH (08:56)
[2017-01-18] MEDS: DIGOXIN 0.25 MG TAB PO SCH (08:56)
[2017-01-18] MEDS: METOPROLOL TARTRATE 50 MG TAB PO SCH ×2 (08:56→22:16)
[2017-01-18] MEDS: PREGABALIN 100 MG CAP PO SCH ×2 (08:57→22:16)
[2017-01-18] MEDS: PRAVASTATIN SOD 40 MG TAB PO SCH (08:57)
[2017-01-18] MEDS: SODIUM CHLORIDE 0.9% FLUSH 10 ML FLUSH IV FLUSH SCH ×2 (08:57→21:00)
[2017-01-18] MEDS: buPROPion HCL 150 MG SUSTAINED RELEASE TAB PO SCH (08:58)
[2017-01-18] MEDS: ARTIFICIAL TEARS OPTH SOLN 15 ML BTL EACH EYE SCH ×3 (08:58→17:39)
--- NOTE | 2017-01-18 09:58 | PD.VS.PN ---
Subjective Procedure(s): fem-fem and right fem-pop bypass with right 2nd toe amputation. Subjective/Hospital Course pain better than yesterday. 2 hours in chair and worked with PT. Objective Vitals/I&O Date Time Temp Pulse Resp B/P Pulse Ox O2 Delivery O2 Flow Rate FiO2 01/18/17 07:38 99 Nasal Cannula 2.00 01/18/17 07:15 97.9 74 21 127/62 91 01/18/17 07:15 91 Nasal Cannula 2.00 01/18/17 07:00 73 01/18/17 06:00 72 01/18/17 06:00 18 01/18/17 05:00 72 01/18/17 04:16 97 Nasal Cannula 2.00 01/18/17 04:13 01/18/17 04:00 72 01/18/17 03:00 70 01/18/17 02:00 72 01/18/17 01:00 72 01/18/17 00:35 93 Nasal Cannula 2.00 01/18/17 00:32 74 18 143/67 93 01/18/17 00:00 70 01/17/17 23:57 18 01/17/17 23:00 71 01/17/17 22:00 74 01/17/17 21:00 78 01/17/17 20:50 18 01/17/17 20:00 74 01/17/17 19:30 96 Nasal Cannula 2.00 01/17/17 19:30 98.6 74 18 127/64 96 01/17/17 19:00 72 01/17/17 18:44 18 01/17/17 15:44 98.3 78 18 130/70 97 01/17/17 15:10 Nasal Cannula 2.00 01/17/17 15:10 78 01/17/17 14:59 97 Nasal Cannula 2.00 01/17/17 14:19 18 01/17/17 14:00 18 01/17/17 11:00 98.3 69 16 128/63 99 01/17/17 11:00 69 01/17/17 11:00 97 Nasal Cannula 2.00 01/18/17 01/18/17 01/18/17 07:00 15:00 23:00 Intake Total 600 ml Output Total 675 ml Balance -75 ml Pulses: Strong pedal signal. right leg incision intact. bilateral groin incisions with vacs. Laboratory Date/Time Procedure Status Source Growth 01/16/17 06:34 Urine Culture - Final Complete Urine Clean Catch Proteus Mirabilis Assessment and Plan Assessment: (1) Toe osteomyelitis, right Status: Acute Plan 1. OOB to chair. May ambulate as tolerated. Will change dressings in groins thursday. Discharge planning to rehabilitation. Kali Otto DO Jan 18, 2017 09:58
[2017-01-18] MEDS: HYDROmorphone HCL PCA 6 MG/30 ML IV SCH ×3 (13:37→23:51)
[2017-01-18] MEDS: LEVOFLOXACIN 250 MG PREMIX INJ 50 ML IV SCH (16:36)
[2017-01-18] MEDS: VANCOMYCIN INJ 1,250 MG in SODIUM CHLOR 0.9% 250 ML INJ 250 ML IV SCH (17:38)
--- NOTE | 2017-01-18 20:46 | MP ---
cc: BOBO HARRY DATE OF SURGERY: 01/16/2017 PREOPERATIVE DIAGNOSIS: Critical limb ischemia with osteomyelitis right second toe. OPERATIVE PROCEDURE PERFORMED: 1. Femoral-femoral bypass with 8 mm ringed PTFE graft. 2. Femoral below-knee popliteal artery with 6 mm [place]-Jimmy PTFE graft. 3. Right second toe amputation. 4 Selective angiogram right lower extremity. SURGEON: Bobo Harry DO. MANAGER TECHNICAL SALES: Gumaro Chappell. IV FLUIDS: 3500 cc of crystalloid. Two units of packed red blood cells. ESTIMATED BLOOD LOSS: 600 cc. URINE OUTPUT: 1100 cc. DESCRIPTION OF THE PROCEDURE IN DETAIL: The patient was prepped from the nipples to the toes after being under general endotracheal anesthesia. We did give the patient perioperative IV antibiotics. The patient did have what appeared to be a possible urinary tract infection and he was treated with antibiotics perioperatively. I used a scalpel and electrocautery and dissected down to the bilateral groins. I mobilized the common femoral, profunda, superficial femoral artery and placed Vesseloops around these vessels. We used multiple small and medium clips as needed in the groins for side branches. Once I mobilized the whole vessel, I was able to heparinize the patient to an ACT of greater than 200 but I did make a tunnel between the right and left groin with a John tunneler before doing this. Performed an end-to-side anastomosis in the left groin with a 5-0 Prolene using a 10 mm ringed PTFE graft. Then I performed another end-to-side anastomosis of the vessel essentially extending from the common to the profunda femoral artery. At the end of the procedure, I checked to see if there were signals in the dorsalis pedis. There was really no change in the signal. There was minimal change that I noted in the signal with compression of the of the bypass graft. Based on this and the patient having limb threatening ischemia, I performed an arteriogram which showed the right profunda femoral artery was widely patent. The right SFA was occluded. The patient had a reconstitution at the above-knee popliteal artery with single-vessel runoff through the right posterior tibial artery. Based on this, I made a third incision in the right medial thigh distally with a scalpel and electrocautery and I dissected down. I retracted the a sartorius muscle although I dissected the above-knee popliteal artery out. The dissection showed there was a lot of inflammation in this area. The dissection somewhat more difficult than usual. I did isolate the above-knee popliteal artery and placed two Vesseloops around it to get proximal and distal control. I then used a John tunneler to tunnel a 6 mm PTFE graft from the groin to the above-knee popliteal region. I sewed in the proximal portion in an end-to-side fashion as I did distally. I used a 5-0 [place]-Jimmy suture proximally after I made a graftotomy, It should be noted that distally I used a 5-0 on a BV1. It should be noted that after this was anastomosis was performed, the signal was much improved in the dorsalis pedis artery. It should be noted that actually on my angiogram, the only vessel to the right lower extremity was the anterior tibial giving rise to the dorsalis pedis and not the posterior tibial artery. After I was finished with this, we made sure we had hemostasis. I used FloSeal and Surgicel as needed and closed in three layers with 2-0, 3-0 and 4-0 sutures in the groins and the right above-knee popliteal artery region. With a separate set of instruments and gloves and gown, I removed the second toe circumferentially with a scalpel and rongeur and sent it for pathology. It should be noted that it was necrotic exposed bone. I then irrigated the area with approximately 250 cc of normal saline. It looked like it was bleeding appropriately. At the end, I used Dermabond over the medial above-knee incision and then Prevena VACs in the groin with a surgical wound VAC over the right second toe. DO POPPY Bush/ASTER /2:27 PM /8:32 PM
[2017-01-18] MEDS: PANTOPRAZOLE SOD 40 MG DELAYED RELEASE TAB PO SCH (22:16)
[2017-01-18] MEDS: TAMSULOSIN HCL 0.4 MG CAP PO SCH (22:16)
[2017-01-18] MEDS: DOCUSATE CALCIUM 240 MG CAP PO SCH (22:17)
[2017-01-18] MEDS: MELATONIN 5 MG TAB PO SCH (23:36)
[2017-01-18] MEDS: BACLOFEN 10 MG TAB PO PRN (23:37)
[2017-01-19] VITALS (25 sets, daily range): BP systolic 104–148; BP diastolic 52–70; PULSE 20–72; RESP 16–20; TEMP 98.1–98.5; O2SAT 95–100
[2017-01-19] MEDS: RESP: ALBUTEROL 2.5 MG/IPRATROPIUM 0.5 MG NEB (SCH) INH ×6 (00:32→20:04)
[2017-01-19] MEDS: ACETAMINOPHEN 325 MG TAB PO SCH ×4 (01:16→23:12)
[2017-01-19] MEDS: PCA - TOTAL MG DILAUDID DELIVERED PER SHIFT OTHER SCH (05:48)
[2017-01-19] MEDS: INSULIN NovoLIN REGULAR SUPPLEMENTAL SCALE SQ SCH ×4 (05:49→23:12)
[2017-01-19] MEDS: LEVOTHYROXINE SODIUM 50 MCG TAB PO SCH (05:58)
[2017-01-19] MEDS: HYDROmorphone HCL PCA 6 MG/30 ML IV SCH (07:42)
[2017-01-19] MEDS: DIGOXIN 0.25 MG TAB PO SCH (07:54)
[2017-01-19] MEDS: MULTIVITAMINS/MINERALS THERAPEUTIC TAB PO SCH (07:54)
[2017-01-19] MEDS: PREGABALIN 100 MG CAP PO SCH ×2 (07:54→20:48)
[2017-01-19] MEDS: LORazepam 1 MG TAB PO PRN (07:54)
[2017-01-19] MEDS: ASPIRIN EC 325 MG TABEC PO SCH (07:55)
[2017-01-19] MEDS: METOPROLOL TARTRATE 50 MG TAB PO SCH ×2 (07:55→20:48)
[2017-01-19] MEDS: ESCITALOPRAM OXALATE 20 MG TAB PO SCH (07:55)
[2017-01-19] MEDS: PRAVASTATIN SOD 40 MG TAB PO SCH (07:55)
[2017-01-19] MEDS: ARTIFICIAL TEARS OPTH SOLN 15 ML BTL EACH EYE SCH ×3 (07:56→18:10)
[2017-01-19] MEDS: SODIUM CHLORIDE 0.9% FLUSH 10 ML FLUSH IV FLUSH SCH ×2 (07:56→21:00)
[2017-01-19] MEDS: buPROPion HCL 150 MG SUSTAINED RELEASE TAB PO SCH (07:57)
--- NOTE | 2017-01-19 11:34 | PD.VS.PN ---
Subjective POD #: 3 Procedure(s): fem-fem and right fem-pop bypass with right 2nd toe amputation. Subjective/Hospital Course Pt sitting in chair in NAD Pt c/o constipation otherwise no other complaints (Oly Mace) Objective Vitals/I&O Date Time Temp Pulse Resp B/P Pulse Ox O2 Delivery O2 Flow Rate FiO2 01/19/17 10:00 64 01/19/17 09:32 18 01/19/17 09:00 60 01/19/17 08:00 68 01/19/17 07:42 18 01/19/17 07:27 96 Nasal Cannula 2.00 01/19/17 07:00 70 01/19/17 07:00 98.5 20 20 131/65 100 01/19/17 07:00 100 Nasal Cannula 2.00 01/19/17 05:48 18 01/19/17 04:20 96 Nasal Cannula 1.00 01/19/17 03:18 97 Nasal Cannula 2.00 01/19/17 03:17 64 16 104/52 97 01/19/17 03:00 62 01/19/17 02:00 64 01/19/17 01:00 66 01/19/17 00:35 95 Nasal Cannula 1.00 01/19/17 00:00 64 01/18/17 23:51 18 01/18/17 23:00 96 Nasal Cannula 2.00 01/18/17 23:00 66 01/18/17 23:00 64 16 110/60 96 01/18/17 22:00 66 01/18/17 22:00 18 01/18/17 21:00 66 01/18/17 20:00 68 01/18/17 19:00 97.9 68 16 123/65 97 01/18/17 19:00 97 Nasal Cannula 2.00 01/18/17 19:00 68 01/18/17 18:35 19 01/18/17 18:15 66 01/18/17 17:00 65 01/18/17 16:00 68 01/18/17 15:51 19 01/18/17 15:51 18 01/18/17 15:03 94 Nasal Cannula 1.00 01/18/17 15:00 95 Nasal Cannula 2.00 01/18/17 15:00 65 01/18/17 15:00 98.6 67 17 127/62 95 01/18/17 14:02 65 01/18/17 14:01 18 01/18/17 13:38 20 01/18/17 13:37 20 01/18/17 13:00 66 01/18/17 12:15 70 01/19/17 01/19/17 01/19/17 06:59 14:59 22:59 Intake Total 840 ml Output Total 750 ml Balance 90 ml Exam: GENERAL: A&OX3,NAD, pt sitting in chair comfortably SKIN: Warm and dry/ Bilat groins w/ Provena wound vacs intact w/o hematomas present/ wound vac intact to right 2nd toe amputation site (125/cont suction)/ R medial thigh incision c/d/i with surgical glue closure/NO R/D/S GASTROINTESTINAL: S/NT with BS present MUSCULOSKELETAL: No cyanosis, or edema. R DP/PT with signals present via Doppler Bilat feet warm with motor intact Laboratory Date/Time Procedure Status Source Growth 01/16/17 06:34 Urine Culture - Final Complete Urine Clean Catch Proteus Mirabilis (Oly Mace) Assessment and Plan Assessment: (1) Toe osteomyelitis, right Status: Acute Plan Plan Continue PT/OOB/WBAT Remove wound vacs R/L groin tomorrow am Discharge planning to rehabilitation tomorrow w/ continued right 2nd toe amputation wound vac therapy D/C [facility] [employer] pump Oly DEUTSCH [facility] [phone] Discharge Planning Tomorrow Am w/ continued right 2nd toe amputation wound vac therapy (Oly Mace) Plan I agree with above A/P Discharge planning. Patient requiring excessive amounts of pain medication. Slurring speech. May need pain management consult. In the interim will switch him to all PO pain meds. Kali Otto DO, FACS (Kali Otto DO) Oly Mace Jan 19, 2017 11:34 Kali Otto DO Jan 19, 2017 13:26
[2017-01-19] MEDS ORDERED: BISACODYL 10 MG SUPP RECTAL ONE (12:00)
[2017-01-19] MEDS: guaiFENesin E.R. 600 MG TAB PO PRN ×2 (14:03→20:48)
[2017-01-19] MEDS: VANCOMYCIN INJ 1,250 MG in SODIUM CHLOR 0.9% 250 ML INJ 250 ML IV SCH (16:43)
[2017-01-19] MEDS: LEVOFLOXACIN 250 MG PREMIX INJ 50 ML IV SCH (16:43)
[2017-01-19] MEDS: oxyCODONE/ACETAMINOPHEN 10 MG/325 MG TAB PO PRN ×2 (16:48→23:12)
[2017-01-19] MEDS: HYDROmorphone HCL PF 1 MG/ML VIAL IV PUSH PRN (16:49)
[2017-01-19] MEDS: TAMSULOSIN HCL 0.4 MG CAP PO SCH (20:48)
[2017-01-19] MEDS: PANTOPRAZOLE SOD 40 MG DELAYED RELEASE TAB PO SCH (20:48)
[2017-01-19] MEDS: DOCUSATE CALCIUM 240 MG CAP PO SCH (20:48)
[2017-01-19] MEDS: MELATONIN 5 MG TAB PO SCH (20:48)
[2017-01-19] MEDS: DOCUSATE SODIUM 100 MG CAP PO SCH (21:00)
[2017-01-20] VITALS (14 sets, daily range): BP systolic 117–139; BP diastolic 56–68; PULSE 61–74; RESP 18–20; TEMP 98.1–98.4; O2SAT 95–98
[2017-01-20] MEDS: RESP: ALBUTEROL 2.5 MG/IPRATROPIUM 0.5 MG NEB (SCH) INH ×4 (00:50→11:21)
[2017-01-20] MEDS: HYDROmorphone HCL PF 1 MG/ML VIAL IV PUSH PRN (02:37)
[2017-01-20] MEDS: CHLORHEXIDINE GLUCONATE 2 % 1 PACK (2 CLOTHS) TOP SCH (04:00)
[2017-01-20] MEDS: fentaNYL 50 MCG/HR PATCH T-DERMAL SCH (04:29)
[2017-01-20] MEDS: ACETAMINOPHEN 325 MG TAB PO SCH ×2 (04:30→11:10)
[2017-01-20] MEDS: LEVOTHYROXINE SODIUM 50 MCG TAB PO SCH (04:30)
[2017-01-20] MEDS: oxyCODONE/ACETAMINOPHEN 10 MG/325 MG TAB PO PRN ×2 (04:30→11:09)
[2017-01-20] MEDS: INSULIN NovoLIN REGULAR SUPPLEMENTAL SCALE SQ SCH (04:44)
[2017-01-20] MEDS ORDERED: REMOVE OLD DURAGESIC (FENTANYL) PATCH T-DERMAL SCH (05:00)
[2017-01-20] MEDS: MULTIVITAMINS/MINERALS THERAPEUTIC TAB PO SCH (08:47)
[2017-01-20] MEDS: DOCUSATE SODIUM 100 MG CAP PO SCH (08:47)
[2017-01-20] MEDS: METOPROLOL TARTRATE 50 MG TAB PO SCH (08:48)
[2017-01-20] MEDS: ASPIRIN EC 325 MG TABEC PO SCH (08:48)
[2017-01-20] MEDS: PRAVASTATIN SOD 40 MG TAB PO SCH (08:48)
[2017-01-20] MEDS: ESCITALOPRAM OXALATE 20 MG TAB PO SCH (08:48)
[2017-01-20] MEDS: PREGABALIN 100 MG CAP PO SCH (08:48)
[2017-01-20] MEDS: buPROPion HCL 150 MG SUSTAINED RELEASE TAB PO SCH (08:49)
[2017-01-20] MEDS: DIGOXIN 0.25 MG TAB PO SCH (08:49)
[2017-01-20] MEDS: ARTIFICIAL TEARS OPTH SOLN 15 ML BTL EACH EYE SCH (08:49)
[2017-01-20] MEDS: SODIUM CHLORIDE 0.9% FLUSH 10 ML FLUSH IV FLUSH SCH (08:50)
--- NOTE | 2017-01-20 09:52 | PD.VS.PN ---
Subjective POD #: 4 Procedure(s): fem-fem and right fem-pop bypass with right 2nd toe amputation. Subjective/Hospital Course Pt in bed alert in NAD Provena wound vacs removed from bilat groin regions Wound vac dressing to R 2nd toe C/D/I Objective Vitals/I&O Date Time Temp Pulse Resp B/P Pulse Ox O2 Delivery O2 Flow Rate FiO2 01/20/17 09:00 74 01/20/17 08:00 69 01/20/17 07:46 96 21 01/20/17 07:00 69 01/20/17 07:00 98.1 70 18 117/56 97 01/20/17 07:00 97 Room Air 01/20/17 06:00 66 01/20/17 05:00 66 01/20/17 04:10 Nasal Cannula 2.00 01/20/17 04:00 68 01/20/17 04:00 69 20 139/68 98 01/20/17 03:00 62 01/20/17 02:00 64 01/20/17 01:00 62 01/20/17 00:51 95 01/20/17 00:05 Nasal Cannula 2.00 01/20/17 00:00 61 01/20/17 00:00 98.4 63 20 130/66 98 01/19/17 23:00 62 01/19/17 22:00 60 01/19/17 21:00 72 01/19/17 20:05 Nasal Cannula 2.00 01/19/17 20:00 98.1 67 20 148/70 98 01/19/17 20:00 64 01/19/17 19:00 64 01/19/17 18:00 67 01/19/17 17:00 65 01/19/17 16:00 64 01/19/17 15:00 98.4 65 20 131/64 98 01/19/17 15:00 67 01/19/17 15:00 100 Nasal Cannula 2.00 01/19/17 14:00 67 01/19/17 13:00 64 01/19/17 12:00 63 01/19/17 11:00 100 Nasal Cannula 2.00 01/19/17 11:00 98.1 64 20 114/66 95 01/19/17 11:00 63 01/19/17 10:00 64 01/20/17 01/20/17 01/20/17 07:00 15:00 23:00 Intake Total 480 ml Output Total 1400 ml Balance -920 ml Exam: GENERAL: A&OX3,NAD, pt in bed resting comfortably SKIN: Warm and dry/ Bilat groins incisions intact w/o hematomas present/ NO D/S slight erythema present at the incision line/ wound vac intact to right 2nd toe amputation site (125/cont suction)/ R medial thigh incision c/d/i with surgical glue closure/NO R/D/S GASTROINTESTINAL: S/NT with BS present MUSCULOSKELETAL: No cyanosis, or edema. R DP/PT with strong signals present via Doppler L DP/PT with strong signals present via Doppler Bilat feet warm with motor intact Laboratory Date/Time Procedure Status Source Growth 01/16/17 06:34 Urine Culture - Final Complete Urine Clean Catch Proteus Mirabilis Assessment and Plan Assessment: (1) Toe osteomyelitis, right Status: Acute Plan Plan Pt to be d/c today to SNF with wound vac therapy for R 2nd toe amputation site Pt will f/u in our OPC in 2W with an SHERIE study Oly [facility] [phone] Discharge Planning Today w/ continued right 2nd toe amputation wound vac therapy Oly Mace Jan 20, 2017 09:52
[2017-01-20] MEDS: guaiFENesin E.R. 600 MG TAB PO PRN (09:58)
[2017-01-20] MEDS ORDERED: OXYC-395 PO (10:12)
--- NOTE | 2017-01-20 10:30 | PD.VS.DC ---
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 Procedure(s): fem-fem and right fem-pop bypass with right 2nd toe amputation. Significant Findings GENERAL: A&OX3,NAD, pt in bed resting comfortably SKIN: Warm and dry/ Bilat groins incisions intact w/o hematomas present/ NO D/S slight erythema present at the incision line/ wound vac intact to right 2nd toe amputation site (125/cont suction)/ R medial thigh incision c/d/i with surgical glue closure/NO R/D/S GASTROINTESTINAL: S/NT with BS present MUSCULOSKELETAL: No cyanosis, or edema. R DP/PT with strong signals present via Doppler L DP/PT with strong signals present via Doppler Bilat feet warm with motor intact Hospital Course: Pt is a 61/M with a PMH of an occluded right common and external iliac with occlusion the right common femoral and right superficial femoral artery. s/p fem-fem and right fem-pop bypass with right 2nd toe amputation Pt has done well post op and is cleared for D/C to a SNF Pt will f/u in 2W with a repeat SHERIE Allergies Coded Allergies Type Severity Reaction Last Updated Verified Ambien Allergy Severe 01/12/17 Yes Macrobid Allergy Severe Tachycardia 01/12/17 Yes 01/18/177/23/177/24/177/24/177/25/177// 06:00 18:00 06:00 18:00 06:00 18:00 Intake Total 600 ml 1700 ml 840 ml 1050 ml 480 ml Output Total 675 ml 1700 ml 750 ml 750 ml 1400 ml Balance -75 ml 0 ml 90 ml 300 ml -920 ml Intake Oral 240 ml 1200 ml 480 ml 1050 ml 480 ml IV Total 360 ml 500 ml 360 ml Output Urine Total 675 ml 1700 ml 750 ml 750 ml 1400 ml # Bowel Movements 0 0 1 Procedure Category Date Status Time Consult Pt Eval & PT 01/17/17 Logged Treat 11:34 Equip, Iv Pump Use Of SPD 01/17/17 Logged 12:33 Vascular Access Team ESTHER 01/18/17 In Process Consult/P 09:17 Vascular Poc IMGUS 01/18/17 Taken Ultrasound (Hub Use Only)Inp Phy CONS 01/19/17 Transmitted Cons/Ref Guaifenesin Er MED 01/19/17 In Process (Mucinex Er) 11:00 Oxycodone-Acetamin MED 01/19/17 In Process 10-325 Mg (Percocet 1 11:30 Bisacodyl Supp MED 01/19/17 Complete (Dulcolax Supp) 12:00 Vac Dressing ESTHER 01/19/17 In Process 11:51 Docusate Sodium MED 01/19/17 In Process (Colace) 21:00 Drape, Vac Adhesive [facility] 01/19/17 Logged 12:50 Dressing, Vac Small [facility] 01/19/17 Logged 12:50 Endovascular Cath CATH 01/16/17 Complete Attending Discharge DISCHARGE 01/20/17 Transmitted Order Vital Signs Date Time Temp Pulse Resp B/P Pulse Ox O2 Delivery O2 Flow Rate FiO2 01/20/17 09:00 74 01/20/17 08:00 69 01/20/17 07:46 96 21 01/20/17 07:00 69 01/20/17 07:00 98.1 70 18 117/56 97 01/20/17 07:00 97 Room Air 01/20/17 06:00 66 01/20/17 05:00 66 01/20/17 04:10 Nasal Cannula 2.00 01/20/17 04:00 68 01/20/17 04:00 69 20 139/68 98 01/20/17 03:00 62 01/20/17 02:00 64 01/20/17 01:00 62 01/20/17 00:51 95 01/20/17 00:05 Nasal Cannula 2.00 01/20/17 00:00 61 01/20/17 00:00 98.4 63 20 130/66 98 01/19/17 23:00 62 01/19/17 22:00 60 01/19/17 21:00 72 01/19/17 20:05 Nasal Cannula 2.00 01/19/17 20:00 98.1 67 20 148/70 98 01/19/17 20:00 64 01/19/17 19:00 64 01/19/17 18:00 67 01/19/17 17:00 65 01/19/17 16:00 64 01/19/17 15:00 98.4 65 20 131/64 98 01/19/17 15:00 67 01/19/17 15:00 100 Nasal Cannula 2.00 01/19/17 14:00 67 01/19/17 13:00 64 01/19/17 12:00 63 01/19/17 11:00 100 Nasal Cannula 2.00 01/19/17 11:00 98.1 64 20 114/66 95 01/19/17 11:00 63 01/19/17 10:00 64 01/19/17 09:32 18 01/19/17 09:00 60 01/19/17 08:00 68 01/19/17 07:42 18 01/19/17 07:27 96 Nasal Cannula 2.00 01/19/17 07:00 70 01/19/17 07:00 98.5 20 20 131/65 100 01/19/17 07:00 100 Nasal Cannula 2.00 01/19/17 05:48 18 01/19/17 04:20 96 Nasal Cannula 1.00 01/19/17 03:18 97 Nasal Cannula 2.00 01/19/17 03:17 64 16 104/52 97 01/19/17 03:00 62 01/19/17 02:00 64 01/19/17 01:00 66 01/19/17 00:35 95 Nasal Cannula 1.00 01/19/17 00:00 64 01/18/17 23:51 18 01/18/17 23:00 96 Nasal Cannula 2.00 01/18/17 23:00 66 01/18/17 23:00 64 16 110/60 96 01/18/17 22:00 66 01/18/17 22:00 18 01/18/17 21:00 66 01/18/17 20:00 68 01/18/17 19:00 97.9 68 16 123/65 97 01/18/17 19:00 97 Nasal Cannula 2.00 01/18/17 19:00 68 01/18/17 18:35 19 01/18/17 18:15 66 01/18/17 17:00 65 01/18/17 16:00 68 01/18/17 15:51 19 01/18/17 15:51 18 01/18/17 15:03 94 Nasal Cannula 1.00 01/18/17 15:00 95 Nasal Cannula 2.00 01/18/17 15:00 65 01/18/17 15:00 98.6 67 17 127/62 95 01/18/17 14:02 65 01/18/17 14:01 18 01/18/17 13:38 20 01/18/17 13:37 20 01/18/17 13:00 66 01/18/17 12:15 70 01/18/17 11:00 69 01/18/17 11:00 93 Nasal Cannula 2.00 01/18/17 11:00 98.1 69 20 115/58 93 01/18/17 10:00 71 01/18/17 09:00 76 01/18/17 08:00 72 01/18/17 07:38 99 Nasal Cannula 2.00 01/18/17 07:15 97.9 74 21 127/62 91 01/18/17 07:15 91 Nasal Cannula 2.00 01/18/17 07:00 73 01/18/17 06:00 72 01/18/17 06:00 18 01/18/17 05:00 72 01/18/17 04:16 97 Nasal Cannula 2.00 01/18/17 04:13 01/18/17 04:00 72 01/18/17 03:00 70 01/18/17 02:00 72 01/18/17 01:00 72 01/18/17 00:35 93 Nasal Cannula 2.00 01/18/17 00:32 74 18 143/67 93 01/18/17 00:00 70 01/17/17 23:57 18 01/17/17 23:00 71 01/17/17 22:00 74 01/17/17 21:00 78 01/17/17 20:50 18 01/17/17 20:00 74 01/17/17 19:30 96 Nasal Cannula 2.00 01/17/17 19:30 98.6 74 18 127/64 96 01/17/17 19:00 72 01/17/17 15:44 98.3 78 18 130/70 97 01/17/17 15:10 Nasal Cannula 2.00 01/17/17 15:10 78 01/17/17 14:59 97 Nasal Cannula 2.00 01/17/17 14:19 18 01/17/17 14:00 18 01/17/17 11:00 98.3 69 16 128/63 99 01/17/17 11:00 69 01/17/17 11:00 97 Nasal Cannula 2.00 Discharge Condition: Good Discharge Disposition: Discharge to SNF Discharge Instructions: Leave Bilat groin/R upper thigh incisions Open to air Continue right second toe wound vac therapy Settings- 125/cont Change wound vac dressing every M,W,F Report any new onset drainage, swelling, redness, fever or chills Pt will f/u in 2 weeks at scheduled appointment time Oly DEUTSCH [facility] [phone] Any questions or concerns: Call [facility] at [facility] [address] [phone] Oly Maec Jan 20, 2017 10:30
== END 2017-01-20 11:38 | DRG 253 ==
LOC: HSDI 01-16 05:34 → HCVR 01-16 15:01 → HCIS 01-17 12:56 → EDSTATUS 01-19 08:00
PROVIDERS: ADMIT Surgery; ATTEND Surgery
PROC: 30233N1 Transfusion of Nonautologous Red Blood Cells into Peripheral Vein, Percutaneous Approach (ICD-10-PCS; 2017-01-16)
PROC: B41F1ZZ Fluoroscopy of Right Lower Extremity Arteries using Low Osmolar Contrast (ICD-10-PCS; 2017-01-16)
PROC: 041K0JH Bypass Right Femoral Artery to Right Femoral Artery with Synthetic Substitute, Open Approach (ICD-10-PCS; principal; 2017-01-16 08:08)
PROC: 041K0JL Bypass Right Femoral Artery to Popliteal Artery with Synthetic Substitute, Open Approach (ICD-10-PCS; 2017-01-16 08:08)
PROC: 0Y6R0Z3 Detachment at Right 2nd Toe, Low, Open Approach (ICD-10-PCS; 2017-01-16 08:08)
DX: E11.51 Type 2 diabetes mellitus with diabetic peripheral angiopathy without gangrene (principal); M86.171 Other acute osteomyelitis, right ankle and foot; E11.22 Type 2 diabetes mellitus with diabetic chronic kidney disease; E11.42 Type 2 diabetes mellitus with diabetic polyneuropathy; D62 Acute posthemorrhagic anemia; E11.69 Type 2 diabetes mellitus with other specified complication; I69.351 Hemiplegia and hemiparesis following cerebral infarction affecting right dominant side; N39.0 Urinary tract infection, site not specified; N18.3 Chronic kidney disease, stage 3 (moderate); J44.9 Chronic obstructive pulmonary disease, unspecified; E78.5 Hyperlipidemia, unspecified; G89.29 Other chronic pain; J45.909 Unspecified asthma, uncomplicated; K59.09 Other constipation; M54.5 Low back pain; E03.9 Hypothyroidism, unspecified; F32.9 Major depressive disorder, single episode, unspecified; F41.9 Anxiety disorder, unspecified; G47.00 Insomnia, unspecified; I12.9 Hypertensive chronic kidney disease with stage 1 through stage 4 chronic kidney disease, or unspecified chronic kidney disease; I48.91 Unspecified atrial fibrillation; K21.9 Gastro-esophageal reflux disease without esophagitis; N40.1 Benign prostatic hyperplasia with lower urinary tract symptoms; N39.498 Other specified urinary incontinence; D63.8 Anemia in other chronic diseases classified elsewhere; M19.90 Unspecified osteoarthritis, unspecified site; Z88.1 Allergy status to other antibiotic agents; Z87.891 Personal history of nicotine dependence; Z79.4 Long term (current) use of insulin; Z88.8 Allergy status to other drugs, medicaments and biological substances
CPT/HCPCS: 36430; 71010; 75710; 76937; 80048; 80053; 80162; 81001; 82948; 83735; 84100; 84443; 85025; 85027; 85610; 85730; 86850; 86900; 86901; 86920; 87077; 87086; 87186; 88305; 88311; 94150; 94640; 94664; C1768; C1769; J1170; J1644; J1956; J2250; J2270; J2370; J2405; J2710; J2720; J3010; J3370; J7030; J7050; J7120; P9016; Q9967

== ENCOUNTER → 2017-01-08 | Outpatient (CLI) | payer MEDICARE, MEDICAID ==
[~2017-01-08] MED LIST changes: +BACT800T5 PO; +CILO100T PO; +CIPR250T52 PO; +CLOP75TA PO; +COLA100C PO; +COLA100C3 PO; +GUAI600T34 PO; +IOHEXOL 350 MG/ML 10 ML VIAL (for RAD DIAG) IV ONE; +IPRASOL INH; +LANTUS2P SQ; +LEVO25TA4 PO; +LEVO50TA4 PO; +MELA3TAB PO; +NOVOINJ3 SQ; +OXYC-395 PO; +OXYC1CAP PO; +PERC10TA27 PO; +PLAV75TA29 PO; +STRETAB11 PO; +TEARSOL EACH EYE; +THERM PO; +TYLE325T PO; +ZOFR4TAB PO
--- NOTE | 2017-01-08 17:11 | RADRPT ---
EXAM DATE/TIME: 01/08/2017 14:35 [facility] COMPARISON: CTA RUNOFF W 3D RECON, September 16, 2016, 16:32. INDICATIONS : Evaluate for vascular disease. IV CONTRAST: 85 cc Omnipaque 350 (iohexol) IV RADIATION DOSE: 14.23 CTDIvol (mGy) MEDICAL HISTORY : Cardiovascular disease. Hypertension. SURGICAL HISTORY : None. ENCOUNTER: Initial ACUITY: 1 day PAIN SCALE: 2/10 LOCATION: Bilateral lower quadrant TECHNIQUE: Volumetric scanning was performed using a multi-row detector CT scanner. The data was post processed with a variety of visualization algorithms including full volume maximum intensity projection, multi -planar sliding thin slab reformation, curved planar reformation, and surface rendering techniques. Using automated exposure control and adjustment of the mA and/or kV according to patient size, radiat ion dose was kept as low as reasonably achievable to obtain optimal diagnostic quality images. DICO M format image data is available electronically for review and comparison. FINDINGS: AORTA: Moderate diffuse atherosclerotic calcifications of the infrarenal abdominal aorta with resultant mode rate distal aortic stenosis. Distal aorta measures 1.1 cm. VISCERAL ARTERIES: Mild stenosis of the celiac origin secondary to calcified plaque. Patent SMA. Mild stenosis of the IM A origin. Single bilateral renal arteries without significant flow-limiting stenosis. RIGHT LEG: INFLOW: Redemonstration of occluded stents in the right common and external iliac artery. The external iliac artery reconstitutes distally near the inguinal ligament. The common femoral artery is small in calib er with with tandem mild stenoses secondary calcified plaque. OUTFLOW: Profunda is patent. SFA is heavily calcified and occluded in the proximal thigh. The there is partial reconstitution of the distal SFA and [id number]-[id number]-[id number] popliteal arteries. There is occlusion of the ab [id number]-ybj-qvdm popliteal artery. RUNOFF: Runoff vessels are heavily calcified and insufficiently opacified for adequate evaluation. LEFT LEG: INFLOW: Heavily calcified iliac arteries with resultant tandem moderate to severe stenoses in the mid to dist al common hepatic artery and tandem moderate stenoses throughout the external iliac artery. Bulky karla cified plaque in the common femoral artery with resultant moderate to severe stenosis. OUTFLOW: Profunda is patent. SFA is heavily calcified and diffusely severely diseased. There is occlusion of t he jvgef-dhi-hlpi popliteal artery just above the level of the knee. Questionable partial reconstitut ion of the fairly distal below-knee popliteal artery RUNOFF: Runoff vessels are heavily calcified and insufficiently opacified for adequate evaluation. GENERAL FINDINGS: Visualized lung bases again demonstrate left lower lobe consolidation unchanged from prior exam.. Meryl luation of the abdominal viscera is limited due to arterial phase technique. Liver and spleen are enl arged with the liver measuring up to 16.8 cm and spleen measuring 17 cm. The adrenal glands, gallblad guillermo, and pancreas are grossly unremarkable. Kidneys demonstrate symmetrical enhancement without evide nce for radiopaque renal calculi or hydronephrosis. Multiple subcentimeter hypodense cystic lesions a re too small to fully characterize. Small gallstones are noted in the gallbladder. The bowel appears unremarkable without evidence for obstruction. No significant free fluid or drainable fluid collectio n. Bladder is mildly distended with mild bilateral thickening similar to previous exam. Prostate and william inal vesicles are within normal limits. There is prominence of the right scrotum which likely a hydro abigail and varicocele although the enhancement pattern is somewhat atypical. No abnormal lytic or blast ic bony lesions. CONCLUSION: 1. Extensive interval progression of bilateral outflow disease. There has been interval occlusion of the right SFA and popliteal arteries. There has also been interval progression of severe diffuse left SFA disease with interval occlusion of the left above-knee popliteal artery. Runoff vessels are not sufficiently visualized due significantly diminished flow adequate assessment 2. Redemonstration of occluded right iliac stents and external iliac artery. Heavily calcified left i liac arteries with tandem moderate to severe stenoses. 3. Redemonstration of hepatosplenomegaly. 4. Prominent right scrotum with at least small hydrocele and varicocele. Overall somewhat atypical pa ttern of enhancement. Clinical correlation for testicular mass is recommended. Consider ultrasound ex amination for further evaluation. Bertrand Adams MD on January 08, 2017 at 16:46 Board Certified Radiologist. This report was verified electronically.
== END ==
LOC: HRAD 11:47
PROVIDERS: ATTEND Surgery
DX: I73.9 Peripheral vascular disease, unspecified (principal)
CPT/HCPCS: 75635; Q9967

== ENCOUNTER → 2017-01-12 | Outpatient (CLI) | payer MEDICARE, MEDICAID ==
[~2017-01-12] MED LIST changes: -IOHEXOL 350 MG/ML 10 ML VIAL (for RAD DIAG) IV ONE
[2017-01-12 12:35] LABS: AUTOMATED NEUTROPHIL # 6.2 TH/MM3 (1.8-7.7); BASOPHIL % 0.3 % (0.0-2.0); EOSINOPHIL # 0.2 TH/MM3 (0-0.4); EOSINOPHIL % 2.7 % (0.0-4.0); HEMO FLAGS DIFF FINAL; LYMPH % 10.8 % (9.0-44.0); LYMPHOCYTE # 0.8 TH/MM3 (1.0-4.8); MEAN CELL VOLUME 78.8 FL (80.0-100.0); MEAN CORPUSCULAR HEMOGLOBIN 25.4 PG (27.0-34.0); MEAN CORPUSCULAR HGB CONC 32.2 % (32.0-36.0); MONO % 6.2 % (0.0-8.0); PLATELET COUNT 115 TH/MM3 (150-450); RED BLOOD COUNT 4.32 MIL/MM3 (4.50-5.90); RED CELL DISTRIBUTION WIDTH 15.7 % (11.6-17.2); WHITE BLOOD COUNT 7.7 TH/MM3 (4.0-11.0)
[2017-01-12 12:45] LABS: BACTERIA, URINE MOD /hpf; BLOOD, URINE SMALL (NEG); COMMENT (UR) CULTURE INDICATED; CULTURE IF INDICATED CULTURE INDICATED; GLUCOSE,URINE NEG (NEG); KETONE, URINE NEG (NEG); PH, URINE 6.5 (5.0-8.5); URINE COLOR YELLOW (YELLW/STRAW)
[2017-01-12 12:48] LABS: NITRITE,URINE POS (NEG)
[2017-01-12 12:52] LABS: APTT (PATIENT) 30.8 SEC (24.3-30.1); PROTHROMBIN TIME - PATIENT 11.4 SEC (9.8-11.6)
[2017-01-12 13:07] LABS: BICARBONATE 26.5 MEQ/L (21.0-32.0); POTASSIUM 4.7 MEQ/L (3.5-5.1)
--- NOTE | 2017-01-12 13:11 | RADRPT ---
EXAM DATE/TIME: 01/12/2017 13:04 [facility] COMPARISON: No previous studies available for comparison. INDICATIONS : Evaluate for pneumonia, pneumothorax or communicable disease. Pre-op, femoral bypass. MEDICAL HISTORY : None. SURGICAL HISTORY : None. ENCOUNTER: Initial ACUITY: 1 day PAIN SCORE: 0/10 LOCATION: Bilateral chest FINDINGS: PA and lateral views of the chest demonstrate the lungs to be symmetrically aerated without evidence of mass, infiltrate or effusion. Left hemidiaphragm is elevated. Mild diffuse interstitial prominence The cardiomediastinal contours are unremarkable. The right acromioclavicular joint is dislocated CONCLUSION: Left hemidiaphragm is elevated. Mild diffuse interstitial prominence. Dislocation of the right acromioclavicular joint possibly chronic . Juan Diego Streeter MD on January 12, 2017 at 13:09 Board Certified Radiologist. This report was verified electronically.
--- NOTE | 2017-01-13 19:23 | EKG ---
Date Performed: 01/12/2017 Time Performed: 11:36:46 PTAGE: 61 years EKG: Sinus rhythm NORMAL ECG NO PREVIOUS TRACING DOCTOR: Daniel Rangel Interpretating Date/Time 01/13/2017 19:22:38
== END ==
LOC: CPRE 10:56
PROVIDERS: ATTEND Surgery
DX: Z01.812 Encounter for preprocedural laboratory examination (principal); Z01.811 Encounter for preprocedural respiratory examination; Z01.810 Encounter for preprocedural cardiovascular examination; I73.9 Peripheral vascular disease, unspecified; N39.0 Urinary tract infection, site not specified; B96.4 Proteus (mirabilis) (morganii) as the cause of diseases classified elsewhere; R91.8 Other nonspecific abnormal finding of lung field
CPT/HCPCS: 36415; 71020; 80048; 81001; 85025; 85610; 85730; 87077; 87086; 87186; 93005